=== PATIENT | male | born 1970 | race Caucasian/White ===

== ENCOUNTER 2024-01-11 13:25 | Emergency (ER) | payer OTHER, SELFPAY ==
--- NOTE | ~2024-01-11 | XR_ITS ---
EXAMINATION: XR lumbar spine 2-3V DATE: 01/11/2024 14:21 INDICATION: Low back pain. TECHNIQUE: 3 views of lumbar spine were obtained. COMPARISON: None. FINDINGS: There is 7 degrees levocurvature of lumbar spine. Vertebral body heights are normal. Interv ertebral disc heights are normal. There are endplate osteophytes at multiple levels. There is multile ashley gwtb-ys-molglqon facet joint osteoarthritis. IMPRESSION: 1. Mild lumbar spondylosis. Reviewed, dictated and finalized at location B. IMPRESSION: 1. Mild lumbar spondylosis.
[2024-01-11 13:40] VITALS: BP 157/89; PULSE 77; RESP 18; TEMP 36.6; O2SAT 99
--- NOTE | 2024-01-11 14:03 | ED.BACK ---
HPI - Back Pain/Injury General Chief Complaint: Back Pain/Injury Stated Complaint: Back Injury Time Seen by Provider: 01/11/24 14:03 Source: patient, RN notes reviewed and old records reviewed Mode of arrival: ambulatory Limitations: no limitations History of Present Illness HPI Narrative: 53 year old male with complaints of injury to his back yesterday when he was prying a tire off of a rim using a bar and felt pain in lower back that went up to the left side of his neck. Patient reports that he continues to have some pain to his lower back which comes and goes, rates his pain a 3/10,denies any radiation to his legs denies any saddle paraesthesia or any difficulty with bowel or bladder function. Patient reports no tingling or numbness sensation to any extremity. Patient has not taken any OTC medication for his symptoms MD elicited complaint: back pain Onset (ago): day(s) (occurred yesterday) Pain scale (0-10): 3 Quality: aching Location: lumbar spine Work related injury: Yes Related Data Home Medications Medication Instructions Recorded Confirmed sertraline 25 mg tablet 25 mg PO DAILY 01/11/24 01/11/24 Review of Systems Review of Systems: CONSTITUTIONAL: Denies fever, chills, or sweats. CARDIOVASCULAR: Denies chest pain, palpitations, or edema. RESPIRATORY: Denies cough or dyspnea. GASTROINTESTINAL: Denies abdominal pain, nausea, vomiting, or diarrhea. GENITOURINARY: Denies dysuria or hematuria. SKIN: Denies rash or itching. MUSCULOSKELETAL: Reports lower back discomfort intermittently. Joint pain or myalgia. NEUROLOGIC: Denies headache, numbness, or weakness. All systems reviewed & are unremarkable except as noted in HPI and below PMFSH Past Medical History Medical History (Updated 01/16/24 @ 09:19 by Kacy Garner NP) Anxiety and depression Elevated cholesterol Social History Social History (Updated 01/16/24 @ 09:20 by Kacy Garner NP) Smoking status: Never smoker Alcohol intake: unknown Substance use: unknown Gender identity (if verbalized by the patient): Male Comments At time of signature, agree with nursing past medical, surgical, social and family history. There is no relevant family history pertinent to the presenting complaint Exam Narrative: GENERAL: Well-appearing, well-nourished, and in no acute distress. HEAD: Normocephalic, atraumatic. EYES: PERRLA and EOMI. NECK: Supple. No lymphadenopathy. CHEST: Clear to auscultation. No respiratory distress. SAO2 99% on room air HEART: Regular rate and rhythm. Distal pulses palpable and equal, cap refill <3 seconds ABDOMEN: Soft, nontender, nondistended, normal active bowel sounds, no palpable or pulsatile masses. No CVA tenderness MUSCULOSKELETAL: Normal range of motion and strength in all extremities; 5/5 strength with hip flexion and extension, dorsiflexion and extension, knee flexion and extension, plantar flexion and extension. Normal sensation in dermatomal distributions with sensitivity to light touch and pain. No midline back tenderness to palpation. No paraspinal tenderness on exam. Transfers from lying to sitting to standing. SKIN: Warm, dry, no rash. No ecchymosis, erythema, open wounds to back. NEURO: No focal deficits. Alert and oriented x3. Reflexes intact. Normal gait. PSYCH: Normal mood and affect Course Course Emergency Course: Patient is aware of diagnosis, understands and agrees to treatment plan. Anticipatory guidance given. Patient agrees to follow-up as directed and is aware of reasons to seek care at the emergency department. Portions of this record may have been created with voice recognition software Level of Care: Express Care Visit Vital Signs Vital signs: Vital Signs Temperature 36.6 C 01/11/24 13:40 Pulse Rate 77 01/11/24 13:40 Respiratory Rate 18 01/11/24 13:40 Blood Pressure 157/89 H 01/11/24 13:40 Pulse Oximetry 99 01/11/24 13:40 Oxygen Delivery Room Air 01/11/24 13:40 Temperature 36.6 C 01/11/24 13:40 Pulse Rate 77 01/11/24 13:40 Respiratory Rate 18 01/11/24 13:40 Blood Pressure 157/89 H 01/11/24 13:40 Pulse Oximetry 99 01/11/24 13:40 Oxygen Delivery Room Air 01/11/24 13:40 reviewed MDM - Back Pain/Injury MDM Narrative Medical decision making narrative: No risk factors or findings concerning for epidural abscess, diskitis, vertebral osteomyelitis, cord compression, cauda equina, vertebral fracture or bone malignancy, AAA, or pyelonephritis. Patient instructed to consider further imaging and workup through their primary care physician as an outpatient if symptoms persist. Differential Diagnosis Differential diagnosis: Likely strain of lumbar region, discitis and other (back pain, osteoarthritis) Medical Records Attestation: I reviewed the patient's medical records. Imaging Data Attestation: I personally reviewed and interpreted this imaging study as follows: My impression: mild lumbar spondylosis Radiologist's impression: [facility] [address] [place] [address] XRay Report Signed Patient: Carlos Crocker : 1970 MR#: [id number] Age: 53 Acct:[id number] Loc: [facility] ADM Date: 01/11/24Attending Dr: Ordering Physician: Kacy Garner APRN Date of Service: 01/11/24 Procedure(s): XR lumbar spine 2-3V Accession Number(s): [id number] cc: JUSTICE,CHASE Luke M.D.; Kacy Garner APRN~ EXAMINATION: XR lumbar spine 2-3V DATE: 01/11/2024 14:21 INDICATION: Low back pain. TECHNIQUE: 3 views of lumbar spine were obtained. COMPARISON: None. FINDINGS: There is 7 degrees levocurvature of lumbar spine. Vertebral body heights are normal. Intervertebral disc heights are normal. There are endplate osteophytes at multiple levels. There is multilevel [id number] facet joint osteoarthritis. IMPRESSION: 1. Mild lumbar spondylosis. Reviewed, dictated and finalized at location B. Dictated By: Ed Doran MD 01/11/24 1425 Signed By: <Electronically signed by Ed Doran MD in OV> Critical Care Time Critical Care Time Critical Care Time: No Discharge Plan Discharge Clinical Impression: Lumbar back pain Patient Disposition: Home, Self-Care Condition: Stable Instructions: Antibiotic Form, Back Pain (ED) Additional Instructions: Ice and heat to the area for 20-30 minutes Gentle stretching exercises Tylenol arthritis 650mg one tab every 8 hours Gentle massage Caution with lifting, bending, stooping, twisting Avoid pushing, pulling take muscle relaxants as directed--caution drowsiness and no driving or alcohol or operating machinery while taking this mediction Anti-inflammatory medicine as directed--take with food takes Meloxicam daily as prescribed He may take the muscle relaxant and anti-inflammatory at the same time Follow-up with your PCP if not improving in 5-7 days If your symptoms persist, change or worsen significantly before you can contact your personal physician then please, without delay, go to the emergency department for further evaluation. Follow-up with PCP in 7-10 days or sooner if needed Follow up with PCP soon in regards to your blood pressure which is elevated above threshold for referral. Blood pressure above 120/80 may indicate pre-hypertension. 157/89 Prescriptions: New prednisone 20 mg tablet 20 mg PO BID Qty: 10 0RF Rx Instructions: take in AM and early pm do not take after 1800, take with food cyclobenzaprine 10 mg tablet 10 mg PO BID Qty: 14 0RF Rx Instructions: can not take during day if driving or working, take only then at bedtime No Action sertraline 25 mg Tablet 25 mg PO DAILY Follow-up/Referrals: Justice,Chase Luke MD [Primary Care Provider] - Stand Alone Forms: Work/School Release IP Time of Disposition: 14:48 Quality [place] Coma Scale Eyes: Open Verbal: Oriented and Alert Motor: Follows Commands [place] Coma Total Score: 15
== END 2024-01-11 14:57 | disposition home or self-care (01) ==
PROVIDERS: Emergency Provider Registered Nurse; PCP Internal Medicine
DX: M54.50 Low back pain, unspecified (principal); E78.00 Pure hypercholesterolemia, unspecified; F41.9 Anxiety disorder, unspecified; F32.A Depression, unspecified
CPT/HCPCS: 72100; 99203; G0463